=== PATIENT | male | born 2005 | race African-American/Black ===

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

== ENCOUNTER 2024-02-09 07:53 | Emergency (ER) | payer OTHER, SELFPAY ==
[2024-02-09 08:00] VITALS: BP 130/84; PULSE 87; RESP 15; TEMP 37.1; O2SAT 100
[2024-02-09 08:28] LABS: Appearance Urine Clear (Clear); Bacteria Urine None Seen /hpf; Bilirubin Urine Negative (Negative); Blood Urine Negative (Negative); Color Urine Yellow (Yellow); Glucose Urine UA Negative (Negative); Ketones Urine Negative (Negative); Leukocyte Esterase Ur 2+ LEU/UL (Negative); Nitrate Urine Negative (Negative); Non Pathogenic Casts 0-2; Protein Urine Negative (Negative); RBC Urine 0-2 /hpf (0-2); Specific Grav Ur 1.018 (1.001-1.035); Squamous Epithelial Cell Urine None Seen /hpf (Few); Urobilinogen Urine 0.2 mg/dL (<2.0); WBC Urine >100 /hpf (0-3); pH Urine 6.5 (5.0-9.0)
--- NOTE | 2024-02-09 08:32 | ED.MALEGU ---
HPI - Male Genitourinary General Chief complaint: Urogenital-Male Stated complaint: I need my private part checked Time Seen by Provider: 02/09/24 07:58 History of Present Illness HPI Narrative: patient is a 18-year-old male who presents ER with concerns for possible sexually transmitted infection. Reports sexual activity 1 week ago with 2 partners without protection. Reports at the base of his penis on the right side he has developed a nodule that drains pus. He also has some discomfort when he urinates. He reports the 2 individuals have told him that they have been tested for STI in the past and were negative. He has no history of STI previously. Denies fevers or chills or sweats. No testicular pain. Related Data Allergies Allergy/AdvReac Type Severity Reaction Status Date / Time No Known Allergies Allergy Verified 02/09/24 08:02 Review of Systems Constitutional: Constitutional: Reports no additional constitutional complaints Gastrointestinal: Gastrointestinal: Reports no additional gastrointestinal complaints Genitourinary: Genitourinary: Reports genital lesions, Reports dysuria, Denies penile discharge, Denies testicular pain and Denies urinary frequency PMFSH Past Medical History Medical History (Updated 02/09/24 @ 11:01 by Evan Chicas MD) Healthy male adolescent Surgical History Surgical History (Updated 04/09/21 @ 19:49 by Evan Chicas MD) No pertinent past surgical history Social History Social History Gender identity (if verbalized by the patient): Male Exam Narrative: GENERAL: Well-appearing, well-nourished, and in no acute distress. HEAD: Normocephalic, atraumatic. ENT: Mucous membranes moist. : Base of right penile shaft with firm nodule in pus can be squeezed out of it. There is a hair follicle in the center of it. No cellulitis. No urethral discharge. No testicular tenderness. No significant lymphadenopathy of the inguinal regions. EXTREMITIES: Normal range of motion. Ambulates w/o issue. SKIN: Warm, dry, no rash. NEURO: Alert and oriented x3. PSYCH: Normal mood and affect. Course Course Emergency Course: Patient positive for gonorrhea and chlamydia. RPR is pending in lab reports this is a batch test and will not come back right away. I think this is unlikely to be primary syphilis but if it is a can be treated with doxycycline 100 mg twice a day for 14 days. Patient will be some given intramuscular ceftriaxone and then also be prescribed the doxycycline for home. I have educated him on the treatment plan and he is verbalized understanding. Also discussed he needs to establish care with a primary care physician so that he can be retested to ensure adequate treatment. I have educated him on abstaining from sex. Vital Signs Vital signs: Vital Signs Temperature 98.7 F 02/09/24 08:00 Pulse Rate 87 02/09/24 08:00 Respiratory Rate 15 02/09/24 08:00 Blood Pressure 130/84 02/09/24 08:00 Pulse Oximetry 100 02/09/24 08:00 Oxygen Delivery Room Air 02/09/24 08:00 Temperature 98.7 F 02/09/24 08:00 Pulse Rate 87 02/09/24 08:00 Respiratory Rate 15 02/09/24 08:00 Blood Pressure 130/84 02/09/24 08:00 Pulse Oximetry 100 02/09/24 08:00 Oxygen Delivery Room Air 02/09/24 08:00 MDM - Male Genitourinary Lab Data Labs: Lab Results 02/09/24 02/09/24 Range/Units 08:16 08:47 Urine Color Yellow (Yellow) Urine Appearance Clear (Clear) Urine pH 6.5 (5.0-9.0) Ur Specific [place] 1.018 (1.001-1.035) Urine Protein Negative (Negative) mg/dL Urine Glucose (UA) Negative (Negative) mg/dL Urine Ketones Negative (Negative) mg/dL Ur Blood (Man) Negative (Negative) Urine Nitrate Negative (Negative) Urine Bilirubin Negative (Negative) Urine Urobilinogen 0.2 (<2.0) mg/dL Leukocyte Esterase Rfl 2+ H (Negative) ARTEM/UL Urine RBC 0-2 (0-2) /hpf Urine WBC >100 H (0
[2024-02-09 08:36] LABS: Add Urine Microscopic? YES
[2024-02-09 10:38] LABS: Chlamydia trachomatis DETECTED (NOT DETECTE); Neisseria gonorrhoeae PCR DETECTED (NOT DETECTE)
[2024-02-09] MEDS: LIDOCAINE HCL 1% LOCAL INJ 10 ML VIAL (11:21)
[2024-02-09] MEDS: cefTRIAXone 1 GM VIAL 0.5 GM IM (11:21)
[2024-02-09 11:40] VITALS: BP 120/84; PULSE 86; RESP 16; TEMP 36.6; O2SAT 100
[2024-02-09 11:51] LABS: Rapid Plasma Reagin Non-Reactive (NonReactive)
== END 2024-02-09 11:42 | disposition home or self-care (01) ==
PROVIDERS: Emergency Provider Emergency Medicine
DX: A54.9 Gonococcal infection, unspecified (principal); A74.9 Chlamydial infection, unspecified
CPT/HCPCS: 36415; 81001; 86592; 87086; 87491; 87591; 96372; 99283; J0696